=== PATIENT | male | born 1970 | race Caucasian/White ===

== ENCOUNTER 2024-11-12 22:11 | Emergency (ER) | payer MEDICAID ==
[~2024-11-12] VITALS: Ht 175.3 cm; Wt 58.9 kg
[2024-11-12 22:27] VITALS: BP 121/63; PULSE 89; RESP 15; O2SAT 98
[2024-11-12] MEDS: proparacaine 0.5% ophthalmic drops 15ml EACHEYE ONE (23:09)
--- NOTE | 2024-11-12 23:14 | Physician Documentation ---
History of Present Illness ~ Chief Complaint: Eye Pain Stated Complaint: POKED EYE WITH STICK Time Seen by MD: 22:56 HPI 54-year-old male who presents to the ED after injuring his left eye this evening. Says he was down by a tree can poked his eye with a none known we had or plant injuring it. Since then he has had eye watering denies any vision changes.. Medication Reconciliation Allergies: Coded Allergies: No Known Allergies (Unverified , 11/12/24) Scheduled Erythromycin Base Opth. Ointment* (Erythromycin Opth. Ointment*), 1 APPLIC EACHEYE Q4HWA Review of Systems All Other Systems at this time: Reviewed and Negative ROS As stated above in the HPI, otherwise all systems are reviewed and negative. Physical Exam Vital Signs: Temperature: 96.8, Source: Temporal, Heart Rate: 89, Respiratory Rate: 15, BP: 121/63, Pulse Oximetry: 98, Weight: 58.900 Physical Exam General: Alert, no apparent distress. HEENT: PERRL, EOMI, no injection, moist mucous membranes. conjunctiva injected as is the sclera of the left eye. Psychiatric: Normal mood and affect. Skin: Normal color, warm and dry. No edema, no ecchymosis. Procedures Eye Procedure Alcaine Drops Administered: Yes Reexamination after removal: abrasion Antibiotic Ointment/Drps Admin: left eye Tolerated Procedure Well?: yes, no complications Progress Results/Orders Results/Orders Completed Orders - JENS CAMACHO NP Proparacaine Ophth Solution (Alcaine Oph (11/12/24 23:00) Erythromycin Ophth Ointment (Ilotycin Op (11/12/24 23:25) Medications Received in ER Medications (Trade) Dose Ordered Sig/Crissy Route PRN Reason Start Time Stop Time Status Last Admin Dose Admin (Ilotycin ophth ointment) 0.25 inch ONCE ONCE LEFTEYE 11/12/24 23:25 11/12/24 23:33 DC 11/12/24 23:36 0.25 INCH Vital Signs 11/12/24 11/12/24 22:27 23:31 Temp 96.8 96.8 Pulse 89 Resp 15 B/P (MAP) 121/63 Pulse Ox 98 Medical Decision Making Findings In the siu lamp proparacaine and fluorescein he was able to visualize a single corneal abrasion just medial to the left pupil. No evidence of foreign body. Eye Diff. Dx: Considerations: Include: [place], Conjuctivits-allergic, Conjuctivitis-bacterial, Conjuctivits-chlamydial, Conjuctivitis-viral, Corneal abrasion, Corneal laceration, Corneal ulceration, Foreign body-conjuctiva, Foreign body-corneal, Foreign body-intraocular, Foreign body-lid, Glaucoma, Globe rupture, Hordeolum, Iritis, Orbital cellulitis, Periobital cellulitis, Retinal artery occulsion, Retinal vein occlusion, Rust ring, Subconjunctival hem, Ultraviolet keratitis, Uveitis, Vitreous hemorrhage, Other Departure Disposition: HOME / SELF CARE / HOMELESS Impression: Primary Impression: Corneal abrasion Condition: Stable Discharge Instructions: Corneal Abrasion Referrals: NO PRIMARY CARE PROVIDER (PCP) Prescriptions Erythromycin Base Opth. Ointment* (Erythromycin Opth. Ointment*) 1 Gm Tube 1 APPLIC EACHEYE Q4HWA, #1 EACH Prov: JENS CAMACHO NP 11/12/24 Education Educated: Patient Educated regarding: diagnosis Signature Scribe Signature: x Attestation: The note accurately reflects work and decisions made by me.Jens Camacho - SUZI 11/12/24 23:40 JENS CAMACHO NP Nov 12, 2024 23:14
[2024-11-12] MEDS ORDERED: ERYT1OIN6 EACHEYE (23:25)
[2024-11-12 23:31] VITALS: TEMP 96.8
[2024-11-12] MEDS: erythromycin ophthalmic ointment 1gm tube LEFTEYE ONE (23:36)
== END 2024-11-12 23:39 | disposition home or self-care (01) ==
LOC: ER 22:12
DX: S05.02XA Injury of conjunctiva and corneal abrasion without foreign body, left eye, initial encounter (principal); X58.XXXA Exposure to other specified factors, initial encounter; Y93.89 Activity, other specified; Y92.89 Other specified places as the place of occurrence of the external cause; Y99.8 Other external cause status
CPT/HCPCS: 99283